=== PATIENT | male | born 1985 | race Caucasian/White ===

== ENCOUNTER 2022-06-20 19:26 | Emergency (ER) | payer BC, OTHER ==
[~2022-06-20] VITALS: Ht 170.2 cm; Wt 109.1 kg
[2022-06-20 19:34] VITALS: BP 160/91
[2022-06-20] MEDS ORDERED: LORazepam 1 MG tablet PO ONE (20:05)
[2022-06-20] MEDS ORDERED: LORazepam 0.5 MG tablet PO ONE (20:05)
[2022-06-20] MEDS ORDERED: LORA-269 PO (20:15)
== END 2022-06-20 20:43 | disposition home or self-care (01) ==
LOC: ER 19:26
DX: F41.9 Anxiety disorder, unspecified (principal); Z56.0 Unemployment, unspecified; Z79.899 Other long term (current) drug therapy
CPT/HCPCS: 99283